=== PATIENT | male | born 1935 | race Caucasian/White ===

== ENCOUNTER 2019-09-21 18:50 | Emergency (ER) | payer BC, MEDICARE ==
[~2019-09-21] VITALS: Ht 170.2 cm; Wt 95.0 kg
[2019-09-21] MEDS ORDERED: morphine 4 MG/ML inj SYRINge IM ONE (19:55)
[2019-09-21] MEDS ORDERED: propofol 10mg/ml 20ml vial IV ONE (20:00)
[2019-09-21] MEDS ORDERED: propofol 1000mg/100ml bottle 100 ML IV ONE (21:07)
[2019-09-21] MEDS ORDERED: HYDR-4353 PO (21:55)
[2019-09-21 22:15] VITALS: BP 151/65
== END 2019-09-21 22:24 | disposition home or self-care (01) ==
LOC: ER 18:51
DX: S42.292A Other displaced fracture of upper end of left humerus, initial encounter for closed fracture (principal); G89.29 Other chronic pain; Z87.442 Personal history of urinary calculi; Z98.890 Other specified postprocedural states; Z79.899 Other long term (current) drug therapy; W01.0XXA Fall on same level from slipping, tripping and stumbling without subsequent striking against object, initial encounter; Y93.89 Activity, other specified; Y92.89 Other specified places as the place of occurrence of the external cause; Y99.8 Other external cause status
CPT/HCPCS: 23605; 73030; 99152; 99153; 99285; J2704; 94760